=== PATIENT | male | born 1940 | race Caucasian/White ===

== ENCOUNTER 2017-05-05 20:25 | Inpatient (IN) | payer MEDICARE, OTHER ==
[2017-05-05 21:00] LABS: #Eosinphils 0.1 thou/uL (0.0-0.7); #Lymphocytes 2.2 thou/uL (1.20-3.40); #Monocytes 0.6 thou/uL (0.11-0.59); %Basophils 0.5 % (0.0-1.0); %Eosinophils 1.7 % (0.0-10.0); %Lymphocytes 37.6 % (21.0-51.0); %Monocytes 9.4 % (0.0-10.0); %Neutrophils 50.9 % (42.0-75.0); Mean Corpuscular HGB CONC 32.8 g/dL (32.0-36.0); Mean Corpuscular Hemoglobin 30.9 pg (27.0-31.0); Mean Corpuscular Volume 94.2 fl (80.0-94.0); Mean Platelet Volume 7.8 fL (7.4-10.4); Platelet Count 200 thou/uL (130-400); RBC Distribution Width 12.1 % (11.5-14.5); Red Blood Cell (RBC) Count 4.54 mill/uL (4.70-6.10); White Blood Cell (WBC) Count 5.9 thou/uL (4.8-10.8)
[2017-05-05 21:04] LABS: PTT 29.1 SEC (22.9-36.1); Prothrombin Time 13.7 SEC (12.0-14.7)
--- NOTE | 2017-05-05 21:05 | CT ---
CT OF BRAIN PERFORMED WITHOUT CONTRAST ENHANCEMENT: History: Right side facial droop. History of fall. Slurred speech. History of previous stroke. Comparison: None. FINDINGS: Some generalized ventricular and sulcal prominence with encephalomalacia change in the right frontal lobe in an anterior perisylvian location. There is a fairly circumscribed oblong shaped 2.5 x 4.2 cm left frontal periventricular white matter bleed. There is no subdural hematoma or mass effect. IMPRESSION: Acute intraparenchymal hemorrhage in the left frontal white matter could potentially be hypertensive in origin. It is not entirely typical for a fall. The possibility of an underlying mass is not totall y excluded and follow up is recommended. Findings telephoned to Dr. Nesbitt at 2037 hours. POS: [facility]
[2017-05-05 21:10] LABS: ALT (SGPT) 8 U/L (8-55); AST (SGOT) 14 U/L (5-34); Albumin 3.9 g/dL (3.4-4.8); Alkaline Phosphatase 53 U/L (40-150); Anion Gap 13 mmol/L (10-20); BUN (Urea Nitrogen) 20 mg/dL (8.4-25.7); Bilirubin, Total 0.4 mg/dL (0.2-1.2); Calc. Creatinine Clearance 0 mL/min (70-130); Calcium 9.2 mg/dL (7.8-10.44); Carbon Dioxide 24 mmol/L (23-31); Chloride 105 mmol/L (98-107); Estimated GFR-MDRD 89; Globulin 2.5 g/dL (2.4-3.5); Glucose 81 mg/dL (83-110); Potassium 4.2 mmol/L (3.5-5.1); Protein, Total 6.4 g/dL (5.8-8.1); Sodium 138 mmol/L (136-145)
[2017-05-05 21:15] LABS: CKMB 1.5 ng/mL (0-6.6); Troponin I 0.021 ng/mL (< 0.028)
--- NOTE | 2017-05-05 21:29 | CT ---
CT OF CERVICAL SPINE PERFORMED WITHOUT CONTRAST ENHANCEMENT: History: Fall with neck pain. FINDINGS: Vertebral bodies are normal in height. There is disc narrowing at C5-6. There are degenerative facet changes present. At the C5-6 level there is some borderline right foraminal narrowing and borderline canal narrowing. Along the right side of the base of the dens seen on coronal image 17 is an area of lucency. Margins are corticated. Thisis not felt to be related to any type of acute injury. Bones do appear deminerali zed. IMPRESSION: 1. Arthritic change in the spine. Subtle area of lucency along the right side of the base of the dens is not felt to be related to acute injury, but clinical correlation is recommended. These findings w ere discussed with Dr. Nesbitt. POS: [facility]
[2017-05-05] MEDS ORDERED: Acetaminophen 650 MG Suppository PR PRN (21:41)
[2017-05-05] MEDS ORDERED: niCARdipine 20MG in NaCl 200 ML BAG IVPB PRN (21:41)
[2017-05-05] MEDS ORDERED: Ondansetron HCl/PF 4 MG/2 ML Vial IVP PRN (21:41)
[2017-05-05] MEDS ORDERED: niCARdipine HCl 25 MG in Sodium Chloride 0.9% 250 ML 240 ML IVPB SCH (22:15)
[2017-05-05 22:32] LABS: Bilirubin Negative (Negative); Blood, Urine Negative (Negative); Clarity CLEAR (Clear); Glucose, Urine (Dipstick) Negative (Negative); Leukocyte Negative (Negative); Nitrite Negative (Negative); Protein, Urine (Dipstick) Negative (Neg-Trace); pH, Urine 7.5 (5.0-9.0)
[2017-05-06] MEDS: Sodium Chloride 0.9% 1,000 ML IV SCH ×3 (00:15→21:40)
[2017-05-06] MEDS ORDERED: FLU VACC TS2017-18 (>65YR) 0.5 ML SYRINGE IM ONE (01:00)
[2017-05-06] MEDS: niCARdipine HCl 25 MG in Sodium Chloride 0.9% 250 ML 240 ML IVPB PRN ×2 (02:00→13:26)
[2017-05-06 04:44] LABS: #Eosinphils 0.1 thou/uL (0.0-0.7); #Lymphocytes 1.5 thou/uL (1.20-3.40); #Monocytes 0.5 thou/uL (0.11-0.59); #Neutrophils 5.8 thou/uL (1.40-6.50); %Basophils 0.3 % (0.0-1.0); %Eosinophils 0.9 % (0.0-10.0); %Lymphocytes 19.5 % (21.0-51.0); %Monocytes 6.3 % (0.0-10.0); Hemoglobin 13.7 g/dL (14.0-18.0); Mean Corpuscular HGB CONC 32.9 g/dL (32.0-36.0); Mean Corpuscular Hemoglobin 30.9 pg (27.0-31.0); Mean Platelet Volume 8.1 fL (7.4-10.4); Platelet Count 191 thou/uL (130-400); Red Blood Cell (RBC) Count 4.44 mill/uL (4.70-6.10); White Blood Cell (WBC) Count 7.9 thou/uL (4.8-10.8)
[2017-05-06 05:06] LABS: Anion Gap 10 mmol/L (10-20); BUN (Urea Nitrogen) 18 mg/dL (8.4-25.7); Calc. Creatinine Clearance 82 mL/min (70-130); Carbon Dioxide 28 mmol/L (23-31); Chloride 102 mmol/L (98-107); Estimated GFR-MDRD Greater than 90; Glucose 108 mg/dL (83-110); Potassium 3.7 mmol/L (3.5-5.1); Sodium 136 mmol/L (136-145)
--- NOTE | 2017-05-06 05:59 | HP ---
ATTENDING PHYSICIAN: Dr. Dell Vargas HISTORY OF PRESENT ILLNESS: The patient is a 77-year-old male with past medical history of CVA, hypertension, prior incarcerated hernia requiring surgical intervention which resulted in a generalized deconditioning. At baseline, the patient walks well, but has right upper extremity weakness and a soft but clear voice. The patient was brought to the ER tonight per EMS following an unwitnessed fall. reports that she heard a thud in the next room and found the patient lying on the floor. The patient was brought to the ED for further evaluation. CT head revealed a left intraparenchymal hemorrhage that is suspect for hypertensive in origin. There was no midline shift or mass effect. CT of the C-spine showed lucency of the dens, but this was not suspected to be traumatic in origin; however, patient is wearing a C-collar. I am seeing the patient at the bedside in the emergency department. He has a GCS of 15. The patient is alert and he answers some questions. His voice is soft and clear. He has a right facial droop. Pupils are equal and reactive to light. Left gaze deviation is appreciated. He has a weak right upper extremity which is slightly spastic but this is chronic per the family. He has good strength in all other extremities and is moving freely. His family denies any anticoagulants or aspirin use. PAST MEDICAL HISTORY: Hypertension, CVA, incarcerated hernia resulting in sepsis, RISHI, ARDS and generalized deconditioning with residual right upper extremity weakness and voice changes. PAST SURGICAL HISTORY: Hernia surgery. SOCIAL HISTORY: The patient is and lives at home with his . He does not smoke, drink or use any drugs. ALLERGIES: The patient is allergic to PENICILLIN. PHYSICAL EXAMINATION: VITAL SIGNS: Blood pressure is 175/101, pulse is 74, respiration rate is 12, temperature is 97.5. He is 97% on room air. CONSTITUTIONAL: He has a GCS of 15. His eyes are open. He is looking around. He answers some questions. He is moving his extremities except for weak in the right upper extremity. He has abrasion to the left frontal region. EYES: Pupils are equal and reactive to light. He has a left gaze preference. NECK: He is currently wearing a cervical collar. He appears nontender on my palpation. RESPIRATORY: The patient is breathing comfortably. No evidence of respiratory distress. CARDIOVASCULAR: Regular rate and rhythm. MUSCULOSKELETAL: He has skin tears to the right upper extremity. He is weak in the right upper extremity with some spasticity of this arm as well. He has 5 /5 strength in the left upper extremity. He is moving bilateral lower extremities, also with 4/5 strength bilateral. NEUROLOGIC: His speech is clear. He answers some questions. He is following commands. He has a right-sided facial droop. PLAN: The patient will be admitted to the ICU for q.1 neuro checks and close monitoring. The Hospitalist will also be consulted for assistance in medical management. The patient is not on any anticoagulants. He has normal PT, PT-INR , and platelet count at this time. The head of the bed will be elevated at 30 degrees. We will plan to repeat head CT in the morning. I have also consulted PT, OT, and speech evaluations. Please reach out to Neurosurgery Service for additional questions or concerns. YU
[2017-05-06] MEDS ORDERED: Eucerin (Mineral Oil/Petrolatum,White) 30 gm Jar TOP PRN (07:29)
[2017-05-06] MEDS ORDERED: Chloraseptic Spray 180 ml Bottle PO PRN (07:29)
[2017-05-06] MEDS ORDERED: Fleet Enema 133 ML BOT PR PRN (07:29)
[2017-05-06] MEDS ORDERED: Bisacodyl 10 MG SUPP PR PRN (07:29)
[2017-05-06] MEDS ORDERED: Sodium Chloride 0.65% Nasal 44 ML BOT EA NARE PRN (07:29)
[2017-05-06] MEDS ORDERED: Artificial Tears 18 DROP/0.9 ML EA EYE PRN (07:29)
--- NOTE | 2017-05-06 07:41 | CT ---
PRELIMINARY REPORT/[facility]/EMERGENCY AFTER HOURS PROCEDURE: EXAM: CT Head Without Intravenous Contrast CLINICAL HISTORY: 77 years old, male; Condition or disease; Other: Intracerebral hemorrhagic stroke; Patient HX: F/u in tracerebral hemorrhagic stroke TECHNIQUE: Axial computed tomography images of the head/brain without intravenous contrast. COMPARISON: CT Brain WO Con 2017-05-05 20:31 FINDINGS: Grossly stable left basal ganglia/beth radiata hemorrhage with surrounding edema. Faint intraventri cular hemorrhage cannot be completely excluded. No hydrocephalus or acute territorial infarction. Chr onic right MCA infarction is stable. The calvarium is intact. The paranasal sinuses are grossly clear IMPRESSION: Grossly stable left-sided basal ganglia/beth radiata hemorrhage with suspected faint intraventricul ar extension Thank you for allowing us to participate in the care of your patient. Dictated and Authenticated by: Mychal Rodriguez MD 05/06/2017 4:24 AM Central Time ([place] & [place]) FINAL REPORT CT BRAIN WITHOUT CONTRAST: I agree with the preliminary report given by Dr. Mychal Rodriguez of [facility]. POS: [facility]
[2017-05-06] MEDS: Famotidine/PF 20 mg/2ml Vial SLOW IVP SCH ×2 (09:44→21:39)
--- NOTE | 2017-05-06 10:10 | CON ---
DATE OF CONSULTATION: 05/06/2017 HISTORY: This is a 77-year-old gentleman in the CCU. REASON FOR CONSULTATION: ICU care. History is obtained extensively from the , the patient is unable to give any history. He has a n ew left intracerebral hemorrhage. Apparently, his states he was coming out of the bathroom and fell on his equipment. He has right-sided facial drooping, he had previous CVA many years ago, saw a local neurologist, plac ed on medication, but apparently stopped taking it because of side effects. He is unable to verbalize anything. An emergency CT showed as noted which I have reviewed personally , I looked at the x-rays, left-sided intracerebral hemorrhage. PAST MEDICAL HISTORY: Unremarkable for any major medical problems, history of diabetes, hypertension . PAST SURGICAL HISTORY: Incarcerated hernia with resection at [facility] about a year ago. This was complicated by renal failure, sepsis, respiratory failure, to which he responded and did well. Otherwise hernia surgery 2017 and a hernia surgery some 20 years ago. ALLERGIES: Apparently PENICILLIN. CURRENT MEDICATIONS: None. 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 Please note I reviewed his past medical records, there are none in this hospital. I talked to his fa mar at length. PAST HISTORY: Otherwise unremarkable. REVIEW OF SYSTEMS: Otherwise, 10-point negative. PHYSICAL EXAMINATION: GENERAL: He opens his eyes, lethargic, but arousable. VITAL SIGNS: Saturations 100%, respirations 24, temperature 97, blood pressure 126/70. HEENT: Pupils are equal. CHEST: No wheezing or crackles. CARDIAC: Normal S1, S2. No gallops. ABDOMEN: Soft, no masses. LABORATORY DATA: White count 10,000, H&H 9 and 34, platelet count 191. Electrolytes are normal. X-RAY FINDINGS: CT brain, I reviewed the image and the report which shows a stable left-sided basila r hemorrhage, some intraventricular extension. CT spine reviewed, unremarkable. His lab shows white count 7000, H&H and 13 and 41, platelet count is normal. Chemistry unremarkable. IMPRESSION: 1. Left-sided intracerebral hemorrhage. Neurology and Neurosurgery have seen the patient and starte d him on nicardipine to control blood pressure. 2. Encephalopathy secondary to #1. PLAN: Pulmonary Critical Care will follow while in the ICU. At this stage, nothing additional to of olga. Await input from Neurosurgery. Please note this is a consultation note, 70 minutes of which 50% of the time was spent in direct tiffanie ent care at the bedside.
--- NOTE | 2017-05-06 15:49 | CON ---
PRIMARY CARE PHYSICIAN: Toby Fierro M.D. PRIMARY ATTENDING: Dell Vargas M.D. REASON FOR ADMISSION: Intracranial hemorrhage. REASON FOR CONSULT: Medical comanagement. HISTORY OF PRESENT ILLNESS: A 77-year-old male who was last seen normal around 8:00 p.m. yesterday. Stroke alert was initiated from home. Patient was having acute onset of right-sided facial droop an d right-sided weakness. Paramedics were called. At that time, his blood pressure was 170/102. The patient was not able to provide any history, but patient's was present. Patient also has previo us history of stroke. The patient's reported that he was doing very well. Yesterday he had his breakfast, lunch, and he went outside to walk and after returning, he also took a nap, but subsequen tly around 8:00 p.m., he was having weakness on the right side and he was not able to talk well and h e was having facial droop. The patient's was concerned about and she called paramedics. In the emergency room, patient had CT brain which showed left frontal intracranial hemorrhage. Dr. Venu Sharpe was notified. The patient was admitted under neurosurgeon. Subsequently we were co nsulted for medical comanagement. This patient did not have any headache, chest pain, palpitations, and shortness of breath. The patie nt's reports that his blood pressure normally remains normal without any medication, but when he was brought to ER, at that time he was hypertensive. Patient does not have any flu-like illness. He does not have any constipation, diarrhea, or UTI symp toms. REVIEW OF SYSTEMS: All review of systems tried to review with the patient, but unable to review at t his point because of altered mental status and patient unable to talk clearly. PAST MEDICAL HISTORY: History of hypertension, but not on specific medication, history of CVA x2, hi story of incarcerated hernia resulted in sepsis, acute kidney failure, ARDS and generalized weakness with residual right upper extremity weakness and voice changes. PAST SURGICAL HISTORY: Hernia repair and colectomy. PAST PSYCHIATRIC HISTORY: Reviewed and negative. SOCIAL HISTORY: Patient is . He lives at home with his . No history of tobacco, alcohol or illicit drug abuse. ALLERGIES: PENICILLIN. CURRENT HOME MEDICATIONS: Patient is not taking any medication at this point at home. EMERGENCY ROOM COURSE: Reviewed. FAMILY HISTORY: No strong family history of premature coronary artery disease, stroke or cancer. PHYSICAL EXAMINATION: VITAL SIGNS: On arrival, blood pressure 161/90, pulse 60, respiratory rate 12, temperature 97.5, sat uration 99% on room air, and weight 66.2 kilograms. GENERAL: Patient is currently alert, awake, hypertensive on Cardene drip. Follow simple commands. HEAD: Mild abrasion to left frontal lobe and normocephalic. EYES: The patient does have left-sided gaze. Pupils round, reactive to light. NECK: Supple, no JVD, no thyromegaly, no carotid bruit, no meningeal signs of irritation. LUNGS: Clear to auscultation without any rhonchi or rales. CARDIAC: S1, S2 regular without any murmur. ABDOMEN: Soft, bowel sounds present, nontender, nondistended. No organomegaly, no mass, no suprapub ic tenderness. BACK: Examination unremarkable, no CVA tenderness. EXTREMITIES: Upper extremity, patient has a skin tear to right upper extremity. Patient has cough s pasticity of right upper extremity. Lower extremity, no edema. Good peripheral pulsation. NEUROLOGIC: Patient does not follow any simple commands, though he is arousable, awake. He does hav e right-sided weakness as well as facial droop. SKIN: No skin rash. IMAGING DATA AND SIGNIFICANT LABORATORY DATA: 1. CT brain showing left intraventricular bleeding. 2. CT cervical spine showed degenerative spine disease. 3. Repeat CT brain this morning showed stable left-sided basal ganglia beth radiata hemorrhage wit h intraventricular extension. groundwater monitoring technician showing normal sinus rhythm. 4. CBC: WBC 7.9, hemoglobin 13.7, platelets 191, INR 1.0. 5. BMP: Sodium 138, potassium 4.2, chloride 105, carbon dioxide 24, anion gap 13, BUN 20, creatinin e 0.84, glucose 81, and calcium 9.2. 6. LFT: AST 14, ALT 8, alkaline phosphatase 53, albumin 3.9, CK 56, CK-MB 1.5, troponin 0.021. Uri nalysis normal. ASSESSMENT AND PLAN/IMPRESSION: 1. Acute intraparenchymal cerebral hemorrhage in left frontal lobe suspecting from hypertension. Po ssibility of amyloid angiopathy needs to be excluded. Repeat CT brain is also stable without any wor sening. This patient may not need any surgical intervention. We will keep in CCU. We will continue with Cardene drip and try to keep blood pressure well controlled. Entire stroke team will see this patient. Once patient is cleared for p.o. intake, then we will resume oral antihypertensive medicati on. Once Cardizem drip is off, then patient can be transferred to the stroke floor and then PT, OT a nd speech therapy will be continued and eventually this patient may need rehab placement. 2. History of a cerebrovascular accident, but currently because of acute intracerebral bleed, chan avitia is not a candidate for any kind of antiplatelet therapy. We will check lipid profile, homocysteine tomorrow. As a part of stroke workup, we will do echocardiography. 3. Hypertension. Currently, patient is on Cardene drip, but once patient is cleared for p.o. intake , then we will start amlodipine and titrate blood pressure medication. 4. Oropharyngeal dysphagia. Speech therapy consulted and diet, we will defer to speech therapy. 5. Physical deconditioning. Patient will need PT, OT, and eventual rehab placement. 6. Deep venous thrombosis prophylaxis. Sequential compression device boots only. No Lovenox becaus e of intracranial bleeding. 7. Gastrointestinal prophylaxis. Patient is on Pepcid 20 mg IV b.i.d. 8. Code status. I spoke with the patient's and she wanted to try at least one time in case of cardiopulmonary arrest, but she does not want him to be on machine forever. In this way, we are keep ing him as a FULL CODE. The patient's is surrogate decision maker. Disposition and plan based on clinical course. We are expecting patient's stay in hospital more than 2 midnights. Plan of care discussed with the patient's at bedside in ICU. Thank you for the consult. We will follow up with you while in hospital.
[2017-05-07] MEDS: Labetalol HCl 100 MG/20 ML VIAL SLOW IVP PRN ×2 (03:04→16:13)
[2017-05-07 05:13] LABS: #Lymphocytes 1.3 thou/uL (1.20-3.40); #Monocytes 0.5 thou/uL (0.11-0.59); #Neutrophils 5.3 thou/uL (1.40-6.50); %Basophils 0.4 % (0.0-1.0); %Eosinophils 0.6 % (0.0-10.0); %Lymphocytes 18.6 % (21.0-51.0); %Monocytes 7.1 % (0.0-10.0); %Neutrophils 73.3 % (42.0-75.0); Hemoglobin 14.2 g/dL (14.0-18.0); Mean Corpuscular HGB CONC 33.3 g/dL (32.0-36.0); Mean Corpuscular Hemoglobin 30.9 pg (27.0-31.0); Mean Corpuscular Volume 92.8 fl (80.0-94.0); Mean Platelet Volume 7.7 fL (7.4-10.4); Platelet Count 207 thou/uL (130-400); Red Blood Cell (RBC) Count 4.61 mill/uL (4.70-6.10); White Blood Cell (WBC) Count 7.2 thou/uL (4.8-10.8)
[2017-05-07 05:22] LABS: Anion Gap 10 mmol/L (10-20); BUN (Urea Nitrogen) 11 mg/dL (8.4-25.7); Calc. Creatinine Clearance 80 mL/min (70-130); Calcium 8.9 mg/dL (7.8-10.44); Carbon Dioxide 28 mmol/L (23-31); Cardiac Risk 2.9 (Less than 4.5); Chloride 103 mmol/L (98-107); Cholesterol 197 mg/dl (< 200 Desired); Estimated GFR-MDRD Greater than 90; Glucose 95 mg/dL (83-110); HDL Cholesterol 67 mg/dL (>60 Neg Risk); LDL Cholesterol, Calculated 117 mg/dL; Potassium 3.9 mmol/L (3.5-5.1); Sodium 137 mmol/L (136-145); Triglycerides 67 mg/dL (Less than 150)
[2017-05-07] MEDS ORDERED: hydrALAZINE 20 MG/ML VIAL SLOW IVP PRN (07:11)
[2017-05-07] MEDS ORDERED: cloNIDine 0.1mg/24 Hour PATCH TD SCH (09:00)
--- NOTE | 2017-05-07 09:25 | PRG ---
DATE OF SERVICE: 05/07/2017 Mr. Ha this morning he is a little bit more responsive. He has right-sided weakness, facial palsy. PHYSICAL EXAMINATION: VITAL SIGNS: Blood pressure is elevated at 160/89, though right now is 130/80 on Cardene at 2.5. He is able to verbalize some. He is afebrile, sats are 90%, respirations 18. I's and O's have been ot herwise good 2206 in, 2124 out. CHEST: Chest revealed decreased breath sounds, no wheezing. CARDIAC: Normal S1-S2. ABDOMEN: Soft. No masses. IMPRESSION: 1. Intracerebral hemorrhage with a right-sided weakness. 2. Hypertension. PLAN: I agree with hydralazine p.r.n. PT, Speech, nutrition and supportive care. I will follow.
[2017-05-07] MEDS: Famotidine/PF 20 mg/2ml Vial SLOW IVP SCH ×2 (09:35→21:01)
[2017-05-07] MEDS: hydrALAZINE 20 MG/ML VIAL SLOW IVP SCH ×2 (10:00→13:08)
--- NOTE | 2017-05-07 11:07 | PDOC.PN ---
- Subjective Encounter Start Date: 05/07/17 Encounter Start Time: 10:00 -: old records requested/rev pt failed swallow evaluation, no fever, bedside Patient seen and examined. No new complaints. No overnight events - Objective Resuscitation Status: Resuscitation Status FULL:Full Resuscitation MAR Reviewed: Yes Vital Signs & Weight: Vital Signs (12 hours) Temp Pulse BP 05/07/17 10:00 71 147/83 H 05/07/17 08:00 98.1 F 05/07/17 03:04 75 152/104 H 05/07/17 03:00 98.2 F Weight Admit Weight 146 lb Weight 146 lb 9.718 oz Most Recent Monitor Data Heart Rate from ECG 78 NIBP 124/53 NIBP BP-Mean 62 Respiration from ECG 23 SpO2 99 I&O: 05/06/17 05/07/17 05/08/17 06:59 06:59 06:59 Intake Total 446.7 2207 Output Total 995 2125 375 Balance -548.3 82 -375 Result Diagrams: 05/07/17 04:35 05/07/17 04:34 EKG Reviewed by me: Yes (nsr) Phys Exam - Physical Examination Constitutional: NAD HEENT: PERRLA, moist MMs, sclera anicteric Neck: no JVD, supple Respiratory: no wheezing, no rales, no rhonchi Cardiovascular: RRR, no significant murmur, no rub Gastrointestinal: soft, non-tender, no distention, positive bowel sounds Musculoskeletal: no edema, pulses present Neurological: non-focal, normal sensation right side weakness Psychiatric: normal affect Skin: no rash, normal turgor Dx/Plan (1) Hypertension Code(s): I10 - ESSENTIAL (PRIMARY) HYPERTENSION Status: Acute (2) ICH (intracerebral hemorrhage) Code(s): I61.9 - NONTRAUMATIC INTRACEREBRAL HEMORRHAGE, UNSPECIFIED Status: Acute (3) Oropharyngeal dysphagia Code(s): R13.12 - DYSPHAGIA, OROPHARYNGEAL PHASE Status: Acute (4) H/O: CVA (cerebrovascular accident) Code(s): Z86.73 - PRSNL HX OF TIA (TIA), AND CEREB INFRC W/O RESID DEFICITS Status: Chronic (5) Physical deconditioning Code(s): R53.81 - OTHER MALAISE Status: Chronic (6) Dyslipidemia Code(s): E78.5 - HYPERLIPIDEMIA, UNSPECIFIED Status: Chronic - Plan cont current plan of care, plan discussed w/ family, PT/OT, social work associate * if pt fails today for any oral intake, will place dubhuff tube and then start tube feeding * medication reviewed as below * symptomatic treatment * will DC cardene drip * place catapress patch * possible transfer to stroke floor * stroke team * will need placement on discharge. Review of Systems - Review of Systems Other: unable to review as pt is aphasic - Medications/Allergies Allergies/Adverse Reactions: Allergies Allergy/AdvReac Type Severity Reaction Status Date / Time Penicillins Allergy Verified 05/05/17 21:59 Medications: Current Medications Acetaminophen (Tylenol) 650 mg TX Q4H PRN PRN Reason: Headache/Fever or Pain Artificial Tears (Tears Naturale) 0 drop EA EYE PRN PRN PRN Reason: Dry Eyes Bisacodyl (Dulcolax) 10 mg TX DAILYPRN PRN PRN Reason: Constipation Clonidine (Vzhveneh-Tkg-1 Patch) 0.1 mg TD Q7DAYS [facility] Famotidine (Pepcid) 20 mg SLOW IVP Q12HR [facility] Last Admin: 05/07/17 09:35 Dose: 20 mg Hydralazine HCl (Apresoline) 10 mg SLOW IVP Q3HR [facility] Last Admin: 05/07/17 10:00 Dose: 10 mg Sodium Chloride (Normal Saline 0.9%) 1,000 mls @ 80 mls/hr IV .[id number] [facility] Last Admin: 05/06/17 21:40 Dose: 1,000 mls Labetalol HCl (Normodyne) 10 mg SLOW IVP Q2H PRN PRN Reason: SBP > 150 or DBP > 90 Last Admin: 05/07/17 03:04 Dose: 10 mg Mineral Oil/White Petrolatum (Eucerin Cream) 0 gm TOP BIDPRN PRN PRN Reason: Dry Skin Morphine Sulfate (Morphine Sulfate) 2 mg SLOW IVP Q4H PRN PRN Reason: Pain Ondansetron HCl (Zofran) 4 mg IVP BIDPRN PRN PRN Reason: Nausea/Vomiting Phenol (Chloraseptic [place] 180 Ml Bot) 0 ml PO PRN PRN PRN Reason: Sore Throat Sodium Biphosphate/Sodium Phosphate (Fleet Enema) 133 ml [place] PRN PRN PRN Reason: Constipation Sodium Chloride (Flush - Normal Saline) 10 ml IVF PRN PRN PRN Reason: Saline Flush Last Admin: 05/07/17 10:02 Dose: 10 ml Sodium Chloride ([place] Nasal [place] 0.65%) 0 ml EA NARE QIDPRN PRN PRN Reason: Nasal Congestion
[2017-05-07] MEDS: Sodium Chloride 0.9% 1,000 ML IV SCH (13:51)
--- NOTE | 2017-05-07 13:59 | RAD ---
SUPINE KUB: Date: 05-07-17 Comparison: None. History: Dobbhoff placement. FINDINGS: Supine imaging is provided, limiting assessment for free intraperitoneal air, pneumothorax, or pleura l fluid. There is a Dobbhoff feeding tube curling in the left upper quadrant, the distal tip likely i n the region of the gastric body or fundus. IMPRESSION: Dobbhoff tube extends into left upper quadrant. POS: [facility]
[2017-05-07] MEDS: hydrALAZINE 20 MG/ML VIAL SLOW IVP PRN (21:00)
[2017-05-08] MEDS: Sodium Chloride 0.9% 1,000 ML IV SCH (00:08)
[2017-05-08] MEDS ORDERED: Acetaminophen 325 MG TAB PER TUBE PRN (07:44)
[2017-05-08] MEDS ORDERED: Diabetic Tussin 200 MG/10 ML UDCUP PER TUBE PRN (07:44)
[2017-05-08] MEDS ORDERED: Mag-Al 1200 mg/1200 mg/30 ML UDCUP PER TUBE PRN (07:44)
[2017-05-08] MEDS: Amlodipine 5 MG TAB PER TUBE SCH (08:00)
[2017-05-08] MEDS: Famotidine/PF 20 mg/2ml Vial SLOW IVP SCH ×2 (09:57→20:40)
--- NOTE | 2017-05-08 10:19 | PRG ---
DATE OF SERVICE: 05/08/2017 He is better. This morning he is awake, responsive, moves his left side. PHYSICAL EXAMINATION: VITAL SIGNS: Sats are 92% on room air, respiration 20, temperature 99, blood pressure 140/80. CHEST: Chest revealed decreased breath sounds, no wheezing. CARDIAC: Normal S1-S2. No gallops. ABDOMEN: Soft, no masses. IMPRESSION: 1. Status post intracerebral hemorrhage. 2. Dysphagia. PLAN: He is scheduled to have a PEG placed. Continue comfort care as per the family's wishes. Palliative care was consulted last night.
[2017-05-08] MEDS: Labetalol HCl 100 MG/20 ML VIAL SLOW IVP PRN ×2 (10:36→22:05)
--- NOTE | 2017-05-08 10:54 | PDOC.PN ---
- Subjective Encounter Start Date: 05/08/17 Encounter Start Time: 08:40 Patient seen and examined. No new complaints. No overnight events pt pulled out dubhuff tube pt is sleepy but arousable - Objective Resuscitation Status: Resuscitation Status FULL:Full Resuscitation MAR Reviewed: Yes Vital Signs & Weight: Vital Signs (12 hours) Temp Pulse Resp BP BP Pulse Ox 05/08/17 10:36 81 175/94 H 05/08/17 08:00 81 146/80 H 05/08/17 07:27 99.0 F 81 20 146/80 H 92 L 05/08/17 04:07 98.5 F 78 18 123/64 96 05/08/17 00:23 99.2 F 71 20 127/62 98 Weight Admit Weight 146 lb Weight 147 lb 12.8 oz Most Recent Monitor Data Heart Rate from ECG 68 NIBP 144/85 NIBP BP-Mean 92 Respiration from ECG 18 SpO2 100 I&O: 05/07/17 05/08/17 05/09/17 06:59 06:59 06:59 Intake Total 2207 2579 Output Total 2125 1345 Balance 82 1234 Result Diagrams: 05/07/17 04:35 05/07/17 04:34 EKG Reviewed by me: Yes Phys Exam - Physical Examination Constitutional: NAD HEENT: PERRLA, moist MMs, sclera anicteric Neck: no JVD, supple Respiratory: no wheezing, no rales, no rhonchi Cardiovascular: RRR, no significant murmur, no rub Gastrointestinal: soft, non-tender, no distention, positive bowel sounds Musculoskeletal: no edema, pulses present unable to assess as he is sleepy Psychiatric: normal affect Skin: no rash, normal turgor Dx/Plan (1) Hypertension Code(s): I10 - ESSENTIAL (PRIMARY) HYPERTENSION Status: Acute (2) ICH (intracerebral hemorrhage) Code(s): I61.9 - NONTRAUMATIC INTRACEREBRAL HEMORRHAGE, UNSPECIFIED Status: Acute (3) Oropharyngeal dysphagia Code(s): R13.12 - DYSPHAGIA, OROPHARYNGEAL PHASE Status: Acute (4) H/O: CVA (cerebrovascular accident) Code(s): Z86.73 - PRSNL HX OF TIA (TIA), AND CEREB INFRC W/O RESID DEFICITS Status: Chronic (5) Physical deconditioning Code(s): R53.81 - OTHER MALAISE Status: Chronic (6) Dyslipidemia Code(s): E78.5 - HYPERLIPIDEMIA, UNSPECIFIED Status: Chronic - Plan cont current plan of care, plan discussed w/ family, PT/OT, child welfare social worker, speech therapy, DVT proph w/SCDs * today I had discussion with about PEG and she finally agreed with PEG placement * will consult GI * once PEG placed, then will start tube feeding and if tolerated well, he will be stable for discharge to rehab when accepted * medication reviewed as below * symptomatic treatment. Review of Systems - Review of Systems Other: unable to review due to his current cognitive status - Medications/Allergies Allergies/Adverse Reactions: Allergies Allergy/AdvReac Type Severity Reaction Status Date / Time Penicillins Allergy Verified 05/05/17 21:59 Medications: Current Medications Acetaminophen (Tylenol) 650 mg FL Q4H PRN PRN Reason: Headache/Fever or Pain Acetaminophen (Tylenol) 650 mg PER TUBE Q4H PRN PRN Reason: Headache/Fever or Mild Pain Al Hydroxide/Mg Hydroxide (Maalox) 15 ml PER TUBE Q4H PRN PRN Reason: Heartburn or Indigestion Amlodipine Besylate (Norvasc) 5 mg PER TUBE DAILY [facility] Last Admin: 05/08/17 08:00 Dose: Not Given Artificial Tears (Tears Naturale) 0 drop EA EYE PRN PRN PRN Reason: Dry Eyes Atorvastatin Calcium (Lipitor) 10 mg PER TUBE [facility] Bisacodyl (Dulcolax) 10 mg FL DAILYPRN PRN PRN Reason: Constipation Clonidine (Xgnmovbd-Lgp-5 Patch) 0.1 mg TD Q7DAYS [facility] Last Admin: 05/07/17 12:59 Dose: 0.1 mg Famotidine (Pepcid) 20 mg SLOW IVP Q12HR [facility] Last Admin: 05/08/17 09:57 Dose: 20 mg Guaifenesin (Robitussin Sf) 200 mg PER TUBE Q4H PRN PRN Reason: Cough Hydralazine HCl (Apresoline) 10 mg SLOW IVP Q3H PRN PRN Reason: DIRECTED Last Admin: 05/07/17 21:00 Dose: 10 mg Labetalol HCl (Normodyne) 10 mg SLOW IVP Q2H PRN PRN Reason: SBP > 150 or DBP > 90 Last Admin: 05/08/17 10:36 Dose: 10 mg Mineral Oil/White Petrolatum (Eucerin Cream) 0 gm TOP BIDPRN PRN PRN Reason: Dry Skin Morphine Sulfate (Morphine Sulfate) 2 mg SLOW IVP Q4H PRN PRN Reason: Pain Ondansetron HCl (Zofran) 4 mg IVP BIDPRN PRN PRN Reason: Nausea/Vomiting Phenol (Chloraseptic [place] 180 Ml Bot) 0 ml PO PRN PRN PRN Reason: Sore Throat Sodium Biphosphate/Sodium Phosphate (Fleet Enema) 133 ml [place] PRN PRN PRN Reason: Constipation Sodium Chloride (Flush - Normal Saline) 10 ml IVF PRN PRN PRN Reason: Saline Flush Last Admin: 05/08/17 10:40 Dose: 10 ml Sodium Chloride ([place] Nasal [place] 0.65%) 0 ml EA NARE QIDPRN PRN PRN Reason: Nasal Congestion
--- NOTE | 2017-05-08 14:03 | CT ---
CT BRAIN WITHOUT CONTRAST: Comparison: 05-06-17 History: Change in mental status. Intracranial hemorrhage. Technique: Multiple contiguous axial images were obtained in a CT of the brain without contrast. FINDINGS: There is stable left basal ganglia hemorrhage with slight shift of the midline to the right. No intra ventricular hemorrhage is seen. There is stable encephalomalacia in the right frontal lobe. There is no evidence of hydrocephalus or extraaxial fluid collection. No change has occurred compared to the p rior exam. The calvarium and overlying soft tissues are unremarkable. The visualized paranasal sinuses and masto id air cells are well aerated. IMPRESSION: Stable left basal ganglia hemorrhage. POS: [facility]
--- NOTE | 2017-05-08 17:16 | CON ---
DATE OF CONSULTATION: 05/08/2017 GASTROENTEROLOGY CONSULTATION CHIEF COMPLAINT: Trouble swallowing. HISTORY OF PRESENT ILLNESS: Mr. Ha is a 77-year-old man, who was admitted with a hemorrhagic strok e on 05/05/2017. He has had dysphagia and dysphagia associated with this. The patient has a history of hypertension and prior stroke. The patient was in his normal state of health on Friday and then had the stroke Friday night. No known diarrhea, constipation, abdominal pain, or blood in the stool. No nausea or vomiting. He had a Dobbhoff or NG tube in yesterday, which he pulled out this morning . He failed a swallow study. GI is consulted for a feeding tube placement. PAST MEDICAL HISTORY: Hypertension and stroke. He had a strangulated internal hernia with sepsis an d complicated hospitalization with acute renal failure and ARDS. This occurred around a year and a h srinivasan ago and he had surgery by Dr. Gibson and has recovered well since then. PAST SURGICAL HISTORY: Internal hernia repair and bowel resection. FAMILY HISTORY: Negative for GI malignancies. SOCIAL HISTORY: No alcohol, tobacco or drugs. ALLERGIES: PENICILLIN. MEDICATIONS: Currently include amlodipine, atorvastatin, and famotidine. REVIEW OF SYSTEMS: Not obtainable as the patient is not verbally communicative due to a stroke. PHYSICAL EXAMINATION: VITAL SIGNS: Temperature 97.6, pulse 63, blood pressure 169/87, oxygen saturation 93% on room air. GENERAL: He is in no acute distress. He is awake. HEENT: His eyes have no scleral icterus. Oropharynx has dry mucous membranes, but it is otherwise c lear. NECK: No cervical or supraclavicular lymphadenopathy. LUNGS: Clear to auscultation bilaterally. HEART: Regular rate and rhythm. ABDOMEN: Soft, nontender, nondistended. Bowel sounds are present. He has a midline incision scar a few centimeters above and below the umbilicus. EXTREMITIES: No lower extremity edema. LABORATORY DATA: White blood cell count 7.2, hemoglobin 14.2, platelets 207. INR is 1.0. Creatinin e is 0.75. IMPRESSION: 1. Hemorrhagic stroke with dysphagia. 2. Hypertension. 3. History of internal strangulated hernia, status post bowel resection. 4. PENICILLIN allergy. RECOMMENDATIONS: 1. We will plan EGD with PEG. 2. Antibiotics per [facility]IP protocol for PENICILLIN allergy prior to the procedure. 3. Obtain an operative report of bowel resection from a year and a half ago.
[2017-05-08] MEDS ORDERED: Dextrose 5 % And 0.9 % NaCl 1,000 ML IV SCH (17:30)
[2017-05-08] MEDS: Dextrose 5 %-0.45 % NaCl 1,000 ML IV SCH (19:32)
[2017-05-08] MEDS: Atorvastatin Calcium 10 MG TAB PER TUBE SCH (21:37)
[2017-05-08] MEDS: hydrALAZINE 20 MG/ML VIAL SLOW IVP PRN (23:46)
[2017-05-09] MEDS: Amlodipine 5 MG TAB PER TUBE SCH (07:10)
[2017-05-09] MEDS: hydrALAZINE 20 MG/ML VIAL SLOW IVP PRN ×2 (08:19→19:02)
[2017-05-09] MEDS ORDERED: Clindamycin/D5W 900 mg/50 ml Premix Bag ONE (09:08)
[2017-05-09] MEDS ORDERED: Levofloxacin 500 mg/D5W 100 ml Premix Bag ONE (09:08)
--- NOTE | 2017-05-09 11:14 | PDOC.PN ---
- Subjective Encounter Start Date: 05/09/17 Encounter Start Time: 09:20 Patient seen and examined. No new complaints. No overnight events s/p PEG placement today - Objective Resuscitation Status: Resuscitation Status FULL:Full Resuscitation MAR Reviewed: Yes Vital Signs & Weight: Vital Signs (12 hours) Temp Pulse Resp BP BP Pulse Ox 05/09/17 08:19 60 05/09/17 07:38 98.4 F 60 20 169/86 H 96 05/09/17 07:10 60 05/09/17 04:55 98.1 F 60 20 152/78 H 98 05/09/17 00:27 123/68 05/08/17 23:46 66 160/78 H Weight Admit Weight 146 lb Weight 161 lb Most Recent Monitor Data Heart Rate from ECG 68 NIBP 144/85 NIBP BP-Mean 92 Respiration from ECG 18 SpO2 100 I&O: 05/08/17 05/09/17 05/10/17 06:59 06:59 06:59 Intake Total 2579 1026 Output Total 1345 750 Balance 1234 276 Result Diagrams: 05/07/17 04:35 05/07/17 04:34 EKG Reviewed by me: Yes (nsr) Phys Exam - Physical Examination Constitutional: NAD HEENT: PERRLA, moist MMs, sclera anicteric Neck: no JVD, supple Respiratory: no wheezing, no rales, no rhonchi Cardiovascular: RRR, no significant murmur, no rub Gastrointestinal: soft, non-tender, no distention, positive bowel sounds PEG+ Musculoskeletal: no edema, pulses present right side weakness Psychiatric: normal affect Skin: no rash, normal turgor Dx/Plan (1) ICH (intracerebral hemorrhage) Code(s): I61.9 - NONTRAUMATIC INTRACEREBRAL HEMORRHAGE, UNSPECIFIED Status: Acute Qualifiers: Intracerebral hemorrhage etiology: nontraumatic Cerebral hemorrhage location: cerebral hemisphere, subcortical portion Laterality: left Qualified Code(s): I61.0 - Nontraumatic intracerebral hemorrhage in hemisphere, subcortical (2) Hypertension Code(s): I10 - ESSENTIAL (PRIMARY) HYPERTENSION Status: Chronic (3) Oropharyngeal dysphagia Code(s): R13.12 - DYSPHAGIA, OROPHARYNGEAL PHASE Status: Acute Comment: s/p PEG placement (4) H/O: CVA (cerebrovascular accident) Code(s): Z86.73 - PRSNL HX OF TIA (TIA), AND CEREB INFRC W/O RESID DEFICITS Status: Chronic (5) Physical deconditioning Code(s): R53.81 - OTHER MALAISE Status: Chronic (6) Dyslipidemia Code(s): E78.5 - HYPERLIPIDEMIA, UNSPECIFIED Status: Chronic - Plan cont current plan of care, PT/OT, nursing home social worker, speech therapy * today later on will start tube feeding and advance as tolerated * on discharge he will go to rehab * medication reviewed as below * symptomatic treatment. * today will start oral meds for BP control Review of Systems - Review of Systems Other: unable to review due to his cognitive status - Medications/Allergies Allergies/Adverse Reactions: Allergies Allergy/AdvReac Type Severity Reaction Status Date / Time Penicillins Allergy Verified 05/05/17 21:59 Medications: Current Medications Acetaminophen (Tylenol) 650 mg MS Q4H PRN PRN Reason: Headache/Fever or Pain Acetaminophen (Tylenol) 650 mg PER TUBE Q4H PRN PRN Reason: Headache/Fever or Mild Pain Al Hydroxide/Mg Hydroxide (Maalox) 15 ml PER TUBE Q4H PRN PRN Reason: Heartburn or Indigestion Amlodipine Besylate (Norvasc) 5 mg PER TUBE DAILY [facility] Last Admin: 05/09/17 07:10 Dose: Not Given Artificial Tears (Tears Naturale) 0 drop EA EYE PRN PRN PRN Reason: Dry Eyes Atorvastatin Calcium (Lipitor) 10 mg PER TUBE HS [facility] Last Admin: 05/08/17 21:37 Dose: Not Given Bisacodyl (Dulcolax) 10 mg MS DAILYPRN PRN PRN Reason: Constipation Clonidine (Xbzehjav-Car-3 Patch) 0.1 mg TD Q7DAYS [facility] Last Admin: 05/07/17 12:59 Dose: 0.1 mg Famotidine (Pepcid) 20 mg SLOW IVP Q12HR [facility] Last Admin: 05/08/17 20:40 Dose: 20 mg Guaifenesin (Robitussin Sf) 200 mg PER TUBE Q4H PRN PRN Reason: Cough Hydralazine HCl (Apresoline) 10 mg SLOW IVP Q3H PRN PRN Reason: DIRECTED Last Admin: 05/09/17 08:19 Dose: 10 mg Dextrose/Sodium Chloride (D5 1/2 Ns) 1,000 mls @ 70 mls/hr IV .[id number] [facility] Last Admin: 05/08/17 19:32 Dose: 1,000 mls Labetalol HCl (Normodyne) 10 mg SLOW IVP Q2H PRN PRN Reason: SBP > 150 or DBP > 90 Last Admin: 05/08/17 22:05 Dose: 10 mg Mineral Oil/White Petrolatum (Eucerin Cream) 0 gm TOP BIDPRN PRN PRN Reason: Dry Skin Morphine Sulfate (Morphine Sulfate) 2 mg SLOW IVP Q4H PRN PRN Reason: Pain Ondansetron HCl (Zofran) 4 mg IVP BIDPRN PRN PRN Reason: Nausea/Vomiting Phenol (Chloraseptic [place] 180 Ml Bot) 0 ml PO PRN PRN PRN Reason: Sore Throat Sodium Biphosphate/Sodium Phosphate (Fleet Enema) 133 ml MS PRN PRN PRN Reason: Constipation Sodium Chloride (Flush - Normal Saline) 10 ml IVF PRN PRN PRN Reason: Saline Flush Last Admin: 05/08/17 10:40 Dose: 10 ml Sodium Chloride ([place] Nasal [place] 0.65%) 0 ml EA NARE QIDPRN PRN PRN Reason: Nasal Congestion
--- NOTE | 2017-05-09 11:55 | OP ---
DATE OF PROCEDURE: 05/09/2017 PROCEDURE: Esophagogastroduodenoscopy with percutaneous endoscopic gastrostomy tube placement. PREOPERATIVE DIAGNOSES: Dysphagia and stroke. PROCEDURE IN DETAIL: Informed consent was obtained from the patient's family. He was sedated with t otal intravenous anesthesia. The bite block was placed and the endoscope was advanced easily to the second portion of the duodenum and retroflexion was performed in the stomach. The esophagus was norm al. The GE junction was normal. The stomach was normal including retroflexed views. The pylorus an d first and second portions of the duodenum were normal. The appropriate site was transilluminated i n the left upper quadrant. This was palpated and there was good 1:1 visualization. The skin was erica rilized with chlorhexidine. The skin was anesthetized with 5 mL of 1% lidocaine. A small skin incis ion was performed with a scalpel and the catheter was placed easily into the stomach on the first att empt. The wire was placed through the catheter and grasped with a snare and pulled out the patient's mouth. The tube was attached and the catheter and placed by the pull-through technique. IMPRESSION: 1. Normal esophagogastroduodenoscopy. 2. Successful placement of 20-[place] percutaneous endoscopic gastrostomy tube. RECOMMENDATIONS: Start tube feeds in 12 hours.
--- NOTE | 2017-05-09 12:04 | PRG ---
DATE OF SERVICE: 05/09/2017 SUBJECTIVE: A 77-year-old gentleman opens his eyes. He was having a PEG done. Denies any difficulty breathing. His is at the bedside. OBJECTIVE: VITAL SIGNS: Blood pressure 130/80, respiratory rate of 18. CHEST: No wheezing. CARDIAC: Normal S1, S2. ABDOMEN: Soft. No masses. IMPRESSION AND PLAN: 1.cerebral_ hemorrhage. 2. Dysphagia. 3. Percutaneous endoscopic gastrostomy. 4. Supportive care, eventually placement. [facility]
[2017-05-09] MEDS: Dextrose 5 %-0.45 % NaCl 1,000 ML IV SCH (12:40)
[2017-05-09] MEDS: Famotidine/PF 20 mg/2ml Vial SLOW IVP SCH ×2 (12:43→20:34)
[2017-05-09] MEDS ORDERED: PROPOFOL 200 MG/20 ML VIAL ONE (13:57)
[2017-05-09] MEDS ORDERED: Lidocaine 1% PF 5 ML VIAL ONE (13:57)
[2017-05-09 14:17] VITALS: BMI 25.2
[2017-05-09] MEDS: Atorvastatin Calcium 10 MG TAB PER TUBE SCH (23:51)
[2017-05-10] MEDS: Dextrose 5 %-0.45 % NaCl 1,000 ML IV SCH (03:27)
[2017-05-10] MEDS: Amlodipine 10 MG TAB PER TUBE SCH (10:12)
[2017-05-10] MEDS: Famotidine/PF 20 mg/2ml Vial SLOW IVP SCH (10:14)
--- NOTE | 2017-05-10 12:22 | PDOC.PN ---
- Subjective Encounter Start Date: 05/10/17 Encounter Start Time: 07:30 pt is doing well, tolerating tube feeding, bedside - Objective Resuscitation Status: Resuscitation Status FULL:Full Resuscitation MAR Reviewed: Yes Vital Signs & Weight: Vital Signs (12 hours) Temp Pulse Resp BP BP Pulse Ox 05/10/17 11:38 97.9 F 65 18 122/70 97 05/10/17 10:12 76 127/66 05/10/17 08:01 97.5 F L 76 20 127/66 97 05/10/17 08:00 97.9 F 65 18 97 05/10/17 04:00 98 F 72 16 152/73 H 97 05/10/17 01:32 141/73 H Weight Admit Weight 145 lb 11.609 oz Weight 151 lb Most Recent Monitor Data Heart Rate from ECG 68 NIBP 144/85 NIBP BP-Mean 92 Respiration from ECG 18 SpO2 100 I&O: 05/09/17 05/10/17 05/11/17 06:59 06:59 06:59 Intake Total 1026 426 Output Total 750 1625 Balance 276 -1199 Result Diagrams: 05/07/17 04:35 05/07/17 04:34 EKG Reviewed by me: Yes Phys Exam - Physical Examination Constitutional: NAD HEENT: PERRLA, moist MMs, sclera anicteric Neck: no JVD, supple Respiratory: no wheezing, no rales, no rhonchi Cardiovascular: RRR, no significant murmur, no rub Gastrointestinal: soft, non-tender, no distention, positive bowel sounds PEG+ Musculoskeletal: no edema, pulses present right side weakness Lymphatic: no nodes Psychiatric: normal affect Skin: no rash, normal turgor Dx/Plan (1) ICH (intracerebral hemorrhage) Code(s): I61.9 - NONTRAUMATIC INTRACEREBRAL HEMORRHAGE, UNSPECIFIED Status: Acute Qualifiers: Intracerebral hemorrhage etiology: nontraumatic Cerebral hemorrhage location: cerebral hemisphere, subcortical portion Laterality: left Qualified Code(s): I61.0 - Nontraumatic intracerebral hemorrhage in hemisphere, subcortical (2) Hypertension Code(s): I10 - ESSENTIAL (PRIMARY) HYPERTENSION Status: Chronic (3) Oropharyngeal dysphagia Code(s): R13.12 - DYSPHAGIA, OROPHARYNGEAL PHASE Status: Acute Comment: s/p PEG placement (4) H/O: CVA (cerebrovascular accident) Code(s): Z86.73 - PRSNL HX OF TIA (TIA), AND CEREB INFRC W/O RESID DEFICITS Status: Chronic (5) Physical deconditioning Code(s): R53.81 - OTHER MALAISE Status: Chronic (6) Dyslipidemia Code(s): E78.5 - HYPERLIPIDEMIA, UNSPECIFIED Status: Chronic - Plan cont current plan of care, plan discussed w/ family, PT/OT, social media community manager * DC IVF * continue tube feeding as tolerated * increase amlodipine 10 mg * medication reviewed as below * symptomatic treatment * stroke team. Review of Systems - Review of Systems Other: not reliable due to his level of cognitive status - Medications/Allergies Allergies/Adverse Reactions: Allergies Allergy/AdvReac Type Severity Reaction Status Date / Time Penicillins Allergy Verified 05/05/17 21:59 Medications: Current Medications Acetaminophen (Tylenol) 650 mg [place] Q4H PRN PRN Reason: Headache/Fever or Pain Acetaminophen (Tylenol) 650 mg PER TUBE Q4H PRN PRN Reason: Headache/Fever or Mild Pain Al Hydroxide/Mg Hydroxide (Maalox) 15 ml PER TUBE Q4H PRN PRN Reason: Heartburn or Indigestion Amlodipine Besylate (Norvasc) 10 mg PER TUBE DAILY [facility] Last Admin: 05/10/17 10:12 Dose: 10 mg Artificial Tears (Tears Naturale) 0 drop EA EYE PRN PRN PRN Reason: Dry Eyes Atorvastatin Calcium (Lipitor) 10 mg PER TUBE HS [facility] Last Admin: 05/09/17 23:51 Dose: 10 mg Bisacodyl (Dulcolax) 10 mg [place] DAILYPRN PRN PRN Reason: Constipation Clonidine (Enlxccti-Ohg-1 Patch) 0.1 mg TD Q7DAYS [facility] Last Admin: 05/07/17 12:59 Dose: 0.1 mg Famotidine (Pepcid) 20 mg SLOW IVP Q12HR [facility] Last Admin: 05/10/17 10:14 Dose: 20 mg Guaifenesin (Robitussin Sf) 200 mg PER TUBE Q4H PRN PRN Reason: Cough Hydralazine HCl (Apresoline) 10 mg SLOW IVP Q3H PRN PRN Reason: DIRECTED Last Admin: 05/09/17 19:02 Dose: 10 mg Dextrose/Sodium Chloride (D5 1/2 Ns) 1,000 mls @ 70 mls/hr IV .[id number] [facility] Last Admin: 05/10/17 03:27 Dose: 1,000 mls Labetalol HCl (Normodyne) 10 mg SLOW IVP Q2H PRN PRN Reason: SBP > 150 or DBP > 90 Last Admin: 05/08/17 22:05 Dose: 10 mg Mineral Oil/White Petrolatum (Eucerin Cream) 0 gm TOP BIDPRN PRN PRN Reason: Dry Skin Morphine Sulfate (Morphine Sulfate) 2 mg SLOW IVP Q4H PRN PRN Reason: Pain Ondansetron HCl (Zofran) 4 mg IVP BIDPRN PRN PRN Reason: Nausea/Vomiting Phenol (Chloraseptic [place] 180 Ml Bot) 0 ml PO PRN PRN PRN Reason: Sore Throat Sodium Biphosphate/Sodium Phosphate (Fleet Enema) 133 ml [place] PRN PRN PRN Reason: Constipation Sodium Chloride (Flush - Normal Saline) 10 ml IVF PRN PRN PRN Reason: Saline Flush Last Admin: 05/10/17 10:14 Dose: 10 ml Sodium Chloride ([place] Nasal [place] 0.65%) 0 ml EA NARE QIDPRN PRN PRN Reason: Nasal Congestion
--- NOTE | 2017-05-10 16:09 | PRG ---
DATE OF SERVICE: 05/10/2017 SUBJECTIVE: Mr. Ha has been tolerating his tube feeds well. He has no abdominal pain. He is more alert today and responsive. OBJECTIVE: LUNGS: Clear to auscultation bilaterally. HEART: Regular rate and rhythm. ABDOMEN: Soft and his bowel sounds are active. No abdominal tenderness. The external bumper was lo osened slightly. The skin around the PEG site appears healthy. IMPRESSION: Dysphagia, status post percutaneous endoscopic gastrostomy tube placement. RECOMMENDATIONS: 1. Continue tube feeds. 2. I will sign off. Please call if GI can be of assistance.
--- NOTE | 2017-05-10 17:26 | EKG ---
Test Reason : Blood Pressure : / mmHG Vent. Rate : 058 BPM Atrial Rate : 058 BPM P-R Int : 156 ms QRS Dur : 096 ms QT Int : 434 ms P-R-T Axes : 012 048 134 degrees QTc Int : 426 ms Sinus bradycardia Anterior infarct , age undetermined Nonspecific ST changes Abnormal ECG Confirmed by DEEPIKA SEPULVEDA, JUANCHO Santana ([id number]), editor at large BENITO VIDAL ([id number]) on 05/10/2017 5:25:51 PM Referred By: Confirmed By:JUANCHO POE MD
--- NOTE | 2017-05-10 17:36 | PRG ---
DATE OF SERVICE: 05/10/2017 SERVICE: Pulmonary Medicine. INTERVAL HISTORY: The patient is doing great from a respiratory standpoint. He is breathing comfort ably. He is following some simple commands with his left upper and lower extremities. Able to stand on two separate occasions with physical therapy. He is slow to respond, but otherwise he looks be i n no distress. He is on room air. PHYSICAL EXAMINATION: VITAL SIGNS: Afebrile, pulse 80, blood pressure 156/81, respirations 20, saturation 98% on room air. GENERAL: Patient is awake, alert, no apparent distress. LUNGS: Decent air entry. Rhonchi are present. No prolonged expiratory phase or wheezing is appreci ated. HEART: Normal rate, regular. ABDOMEN: Soft, nontender, nondistended. Bowel sounds positive. MUSCULOSKELETAL: No cyanosis or clubbing. No pitting in the bilateral lower extremities. NEUROLOGIC: Grossly nonfocal. ASSESSMENT: 1. Intraventricular hemorrhage. 2. Dysphasia. 3. Status post percutaneous endoscopic gastrostomy tube placement. DISCUSSION AND PLAN: The patient is doing well from a respiratory standpoint. As such, Pulmonary wi ll continue to follow intermittently. From a purely respiratory perspective, he remains stable for t ransition out to the hospital. If he gets into trouble, please give me a phone call sooner.
[2017-05-10] MEDS: Famotidine 20 MG TAB PER TUBE SCH (22:26)
[2017-05-10] MEDS: Atorvastatin Calcium 10 MG TAB PER TUBE SCH (22:26)
[2017-05-11] MEDS ORDERED: Carvedilol 6.25 MG TAB PER TUBE SCH (08:00)
[2017-05-11] MEDS ORDERED: Lisinopril 5 MG TAB PER TUBE SCH (09:00)
[2017-05-11] MEDS: Famotidine 20 MG TAB PER TUBE SCH (10:05)
[2017-05-11] MEDS: Amlodipine 10 MG TAB PER TUBE SCH (10:05)
--- NOTE | 2017-05-11 11:11 | DIS ---
PRIMARY CARE PHYSICIAN: Dr. Toby Fierro. DATE OF ADMISSION: 05/05/2017 DATE OF DISCHARGE: 05/11/2017 DISCHARGE DISPOSITION: Inpatient rehabilitation. PRIMARY DISCHARGE DIAGNOSES: 1. Left frontal lobe intracerebral hemorrhage. 2. Oropharyngeal dysphagia, status post PEG tube placement. SECONDARY DISCHARGE DIAGNOSES: Physical deconditioning, hypertension, history of CVA, dyslipidemia, and hypertension. PRIMARY PROCEDURE/OPERATION: PEG tube placement. RADIOLOGICAL INVESTIGATION: CT brain initially showed left frontal lobe intraparenchymal hemorrhage. Echocardiography showed EF 40% to 45% and diastolic dysfunction. A repeat CT brain 2 times was sta ble. SIGNIFICANT LABORATORY DATA: WBC 7.2, hemoglobin 14.2, platelets 207. INR 1.0, sodium 137, potassiu m 3.9, BUN 11, creatinine 0.75, calcium 8.9, LDL 117. Homocysteine 7.67. LFTs normal. Cardiac enzy mes negative. Urinalysis normal. DISCHARGE MEDICATIONS: Amlodipine 10 mg per tube daily, Lipitor 10 mg per tube daily, Coreg 12.5 mg per tube b.i.d., Pepcid 20 mg per tube b.i.d., and lisinopril 5 mg per tube daily. CONTRAINDICATIONS: None. The patient is not on aspirin or any antiplatelet or anticoagulant therapy because of intracranial hemorrhage. CODE STATUS: FULL CODE. INPATIENT CONSULTANTS: Dr. Sanchez was following because the patient was admitted to CCU. Dr. Carvajal was consulted for PEG tube placement. Dr. Vargas initially primary and subsequently they sign off and sound team was primary by the time of discharge. DISCHARGE PLAN: Post hospital, the patient will follow up with Dr. Sri Luis after rehabilitatio n. HOSPITAL COURSE: A 77-year-old male who initially came to the emergency room with right-sided weakne ss, facial asymmetry, and altered mental status. In the emergency room, CT brain showed intraparench ymal left frontal lobe hemorrhage. CT cervical spine was negative. Patient was admitted in the CCU under neurosurgeon, Dr. Vargas was initially primary. Sound team was consulted for medical comanag ement. Patient was treated with Cardene drip in the CCU because the patient was in the CCU and that is why pulmonary group saw this patient. Patient was having difficulty swallowing because of intracr anial hemorrhage and patient was deemed not a safe candidate for any kind of oral intake. Initially we put a Dobhoff tube and subsequently patient removed Dobhoff tube and we discussed with the patient 's about necessity PEG tube placement. Patient was agreed and Dr. Carvajal was consulted and he di d a PEG tube placement. After that, we started tube feeding and he was tolerating well. Before that we moved him to stroke floor from CCU. He had 2 CT brain, which was stable. The patient was also hydrated with IV fluid while in hospital until he got nutritional support. Patient is doing very well. He is accepted for inpatient rehabilitation and now we have access for o ral intake and that is why we changed antihypertensive medication to Amlodipine, Coreg, and lisinopri l. Catapres patch was removed, which was started earlier. LDL is high and that is why we are prescr ibed Lipitor as well. Today, I saw this patient at bedside. I spoke with the patient's and updated about the plan. PHYSICAL EXAMINATION: VITAL SIGNS: Currently, temperature 98.0, pulse 72, respiratory rate 16, saturation 96%, blood press ure 167/85. Weight 151 pounds. GENERAL: The patient is arousable, smiling. HEAD: Normocephalic, atraumatic. EYES: Pupils round, reactive to light. Extraocular muscles intact. ENT: Oropharynx within normal limits. Facial asymmetry noted. NECK: Supple, no JVD, no thyromegaly, no carotid bruits. LUNGS: Clear to auscultation without any rhonchi or rales. CARDIAC: S1 and S2 regular without any murmur. ABDOMEN: Soft and benign without any tenderness active in place. EXTREMITIES: No edema. NEUROLOGIC: The patient does have right-sided weakness and aphasia. Paper work for discharge done. Discharge medication reconciliation done. Total time spent on discha rge day more than 30 minutes.
[2017-05-11 11:30] VITALS: BP 98/57
[2017-05-11 11:32] VITALS: TEMP 98.8
== END 2017-05-11 15:47 | DRG 64 ==
LOC: ERS 20:25 → CCU 21:20 → 2SE 05-07 13:54
PROVIDERS: ADMIT Neurological Surgery; ATTEND Neurological Surgery
PROC: 0DH63UZ Insertion of Feeding Device into Stomach, Percutaneous Approach (ICD-10-PCS; principal; 2017-05-09)
DX: I61.1 Nontraumatic intracerebral hemorrhage in hemisphere, cortical (principal); G93.49 Other encephalopathy; G81.91 Hemiplegia, unspecified affecting right dominant side; R13.12 Dysphagia, oropharyngeal phase; I10 Essential (primary) hypertension; E78.5 Hyperlipidemia, unspecified; Z86.73 Personal history of transient ischemic attack (TIA), and cerebral infarction without residual deficits; Z88.0 Allergy status to penicillin
CPT/HCPCS: 36415; 36416; 51702; 70450; 72125; 74018; 80048; 80053; 80061; 81003; 82553; 83090; 84484; 85025; 85610; 85730; 93005; 93306; 99292; G0390; G8978-GP-CN; G8979-GP-CM; G8987-GO-CM; G8988-GO-CK; G8996-GN-CN; G8997-GN-CJ; G8997-GN-CM; J0360; J1956; J2001; J2704; J3490; J7050; S0028

== ENCOUNTER 2017-05-20 14:30 | Emergency (ER) | payer MEDICARE, OTHER ==
[2017-05-20 15:07] LABS: Bilirubin Negative (Negative); Blood, Urine Negative (Negative); Clarity CLOUDY (Clear); Glucose, Urine (Dipstick) Negative (Negative); Leukocyte Moderate (Negative); Nitrite Negative (Negative); Protein, Urine (Dipstick) Negative (Neg-Trace); Specific Gravity, Urine 1.021 (1.002-1.036); pH, Urine 5.5 (5.0-9.0)
[2017-05-20 15:09] LABS: Bacteria/HPF None Seen HPF (None Seen); Hyaline Casts/LPF 0-3 HYALINE CAST LPF (0-3 Hyaline); Squamous Epithelial 0-3 HPF (0-3)
--- NOTE | 2017-05-20 15:37 | CT ---
NONCONTRAST HEAD CT: History: Trauma. Fall. Post-traumatic pain. Comparison: 05-08-17 Technique: Noncontrast head CT is performed from skull base to skull vertex. FINDINGS: Re-demonstration of the large hemorrhage centered in the left lentiform nucleus. There is associated peripheral edema. There is mass effect, left lateral ventricle. There is no midline shift. Basilar ci sterns are patent. There is malacic change involving the right frontal and temporal lobes due to germain te insult. No hydrocephalus. Calvarium is intact. Skin manuel in the right frontal scalp. Adequate aeration of sinuses and mastoi d air cells. IMPRESSION: Re-demonstration of intracranial hemorrhage. No intracranial post-traumatic sequellae. Results of ashley dy discussed with Dr. Gonzalez 05-20-17 at 3:25 p.m. POS: [facility]
--- NOTE | 2017-05-20 15:44 | CT ---
CT CERVICAL SPINE WITH CORONAL AND SAGITTAL REFORMATIONS: 05/20/17 HISTORY: Fell out of wheelchair and hit head, headache and neck pain. FINDINGS/IMPRESSION: There are degenerative changes most prominent at C5-6 level. No acute fracture or subluxation is iden tified. POS: [facility]
== END 2017-05-20 16:40 | disposition home or self-care (01) ==
LOC: ERS 14:30
DX: S01.01XA Laceration without foreign body of scalp, initial encounter (principal); Z86.73 Personal history of transient ischemic attack (TIA), and cerebral infarction without residual deficits; W05.0XXA Fall from non-moving wheelchair, initial encounter
CPT/HCPCS: 12001; 70450; 72125; 81003; 81015; 87077; 87086; 87186

== ENCOUNTER 2017-05-22 11:07 | Emergency (ER) | payer MEDICARE, OTHER ==
--- NOTE | 2017-05-22 11:54 | CT ---
NONCONTRAST HEAD CT: Date: 05/22/17 HISTORY: Fall. Pain. Intracranial hemorrhage. COMPARISON: 05/20/17, 05/08/17. TECHNIQUE: A noncontrast head CT is performed from the skull base to the skull vertex. FINDINGS: Persistent hematoma centered in the left deep tena matter structures. There is continuous peripheral edema. The hematoma currently measures 3.6 x 2.3 cm. Persistent mild mass effect upon the left latera l ventricle. Stable malacic changes in the right frontal lobe. Calvarium is intact. Adequate aeration of the sinuses and mastoid air cells. Skin manuel project over the right frontal r egion. IMPRESSION: Redemonstration of intracranial hemorrhage. Associated edema. When compared to the most recent prior exam, no significant change in size of the intracranial hemorrhage. Continue surveillance. POS: OFF
[2017-05-22 12:33] LABS: #Eosinphils 0.1 thou/uL (0.0-0.7); #Lymphocytes 1.2 thou/uL (1.20-3.40); #Monocytes 0.5 thou/uL (0.11-0.59); #Neutrophils 6.2 thou/uL (1.40-6.50); %Basophils 0.3 % (0.0-1.0); %Eosinophils 0.8 % (0.0-10.0); %Lymphocytes 15.3 % (21.0-51.0); %Monocytes 6.3 % (0.0-10.0); %Neutrophils 77.3 % (42.0-75.0); Hemoglobin 14.6 g/dL (14.0-18.0); Mean Corpuscular HGB CONC 32.1 g/dL (32.0-36.0); Mean Corpuscular Hemoglobin 29.9 pg (27.0-31.0); Mean Corpuscular Volume 93.2 fl (80.0-94.0); Mean Platelet Volume 7.3 fL (7.4-10.4); Platelet Count 296 thou/uL (130-400); RBC Distribution Width 11.7 % (11.5-14.5); Red Blood Cell (RBC) Count 4.89 mill/uL (4.70-6.10)
[2017-05-22 12:56] LABS: ALT (SGPT) 20 U/L (8-55); AST (SGOT) 22 U/L (5-34); Albumin 3.8 g/dL (3.4-4.8); Alkaline Phosphatase 81 U/L (40-150); Anion Gap 13 mmol/L (10-20); BUN (Urea Nitrogen) 20 mg/dL (8.4-25.7); Bilirubin, Total 0.7 mg/dL (0.2-1.2); Calc. Creatinine Clearance 0 mL/min (70-130); Calcium 9.3 mg/dL (7.8-10.44); Carbon Dioxide 29 mmol/L (23-31); Chloride 97 mmol/L (98-107); Estimated GFR-MDRD Greater than 90; Globulin 2.8 g/dL (2.4-3.5); Glucose 121 mg/dL (83-110); Potassium 4.7 mmol/L (3.5-5.1); Protein, Total 6.6 g/dL (5.8-8.1); Sodium 134 mmol/L (136-145)
[2017-05-22 12:59] LABS: CKMB 2.2 ng/mL (0-6.6); Troponin I Less than 0.010 ng/mL (< 0.028)
== END 2017-05-22 13:52 | disposition home or self-care (01) ==
LOC: ERS 11:07
DX: R40.0 Somnolence (principal); T44.7X5A Adverse effect of beta-adrenoreceptor antagonists, initial encounter; I69.90 Unspecified sequelae of unspecified cerebrovascular disease; Z79.899 Other long term (current) drug therapy
CPT/HCPCS: 36415; 70450; 82553; 84484; 93005

== ENCOUNTER 2018-12-14 10:22 | Inpatient (IN) | payer MEDICARE, OTHER ==
[2018-12-14] MEDS ORDERED: DOPamine 400 MG/D5W 250 ML 250 ML ONE (10:43)
[2018-12-14 10:53] LABS: #Eosinphils 0.1 thou/uL (0.0-0.7); #Lymphocytes 1.4 thou/uL (1.20-3.40); #Monocytes 0.9 thou/uL (0.11-0.59); #Neutrophils 11.8 thou/uL (1.40-6.50); %Basophils 0.3 % (0.0-1.0); %Eosinophils 0.6 % (0.0-10.0); %Monocytes 6.5 % (0.0-10.0); %Neutrophils 82.6 % (42.0-75.0); Hemoglobin 15.7 g/dL (14.0-18.0); Mean Corpuscular HGB CONC 33.9 g/dL (32.0-36.0); Mean Corpuscular Hemoglobin 30.9 pg (27.0-31.0); Mean Corpuscular Volume 91.1 fL (78.0-98.0); Mean Platelet Volume 7.6 fL (7.4-10.4); Platelet Count 259 thou/uL (130-400); RBC Distribution Width 12.7 % (11.5-14.5); Red Blood Cell (RBC) Count 5.09 mill/uL (4.70-6.10); White Blood Cell (WBC) Count 14.2 thou/uL (4.8-10.8)
--- NOTE | 2018-12-14 10:57 | RAD ---
EXAM: Single view of the chest HISTORY: Vomiting and aspiration COMPARISON: None FINDINGS: Single view of the chest shows a normal sized cardiomediastinal silhouette. There is no leana dence of consolidation, mass, or pleural effusion. Degenerative changes are seen in the spine. IMPRESSION: No evidence of acute cardiopulmonary disease
[2018-12-14 11:22] LABS: ALT (SGPT) 15 U/L (8-55); AST (SGOT) 16 U/L (5-34); Albumin 3.8 g/dL (3.4-4.8); Alkaline Phosphatase 82 U/L (40-150); Anion Gap 12 mmol/L (10-20); BUN (Urea Nitrogen) 23 mg/dL (8.4-25.7); Bilirubin, Total 0.5 mg/dL (0.2-1.2); CK (CPK) 115 U/L (30-200); Calc. Creatinine Clearance 0 mL/min (70-130); Carbon Dioxide 22 mmol/L (23-31); Chloride 103 mmol/L (98-107); Estimated GFR-MDRD 64; Globulin 2.7 g/dL (2.4-3.5); Glucose 201 mg/dL (83-110); Lipase 21 U/L (8-78); Potassium 4.6 mmol/L (3.5-5.1); Protein, Total 6.5 g/dL (5.8-8.1); Sodium 132 mmol/L (136-145)
[2018-12-14] MEDS ORDERED: Sodium Chloride 0.9% 2,500 ML IV SCH (11:30)
[2018-12-14] MEDS ORDERED: Cefepime 2 GM in Sodium Chloride 0.9% 100 ML IVPB SCH (11:45)
[2018-12-14] MEDS ORDERED: DOPamine 400 MG/D5W 250 ML 250 ML IVPB SCH (11:45)
[2018-12-14] MEDS ORDERED: Clindamycin/D5W 900 MG in Premix Bag 1 BAG IVPB SCH (12:00)
[2018-12-14 12:08] LABS: Bilirubin Negative (Negative); Blood, Urine 2+ (Negative); Clarity Clear (Clear); Glucose, Urine (Dipstick) Normal (Negative); Leukocyte Negative Leu/uL (Negative); Nitrite Negative (Negative); Protein, Urine (Dipstick) Negative (Neg-Trace); RBC/HPF 0-3 HPF (0-3); Squamous Epithelial 0-3 HPF (0-3); Urobilinogen Normal mg/dL (Less than 2); WBC/HPF 0-3 HPF (0-3)
[2018-12-14 12:11] LABS: Bacteria/HPF 1+ HPF (None Seen)
[2018-12-14] MEDS ORDERED: Morphine 4 MG/ML VIAL SLOW IVP PRN (14:40)
[2018-12-14] MEDS ORDERED: Lorazepam 2 MG/ML VIAL SLOW IVP PRN (14:41)
--- NOTE | 2018-12-14 14:44 | PDOC.HHP ---
Hospitalist HPI - History of Present Illness Aspiration History of Present Illness: 78 year old gentleman with PMHx of intracranial hemorrhage, aphasia, dysphagia, bed bound state for the past 20 months, HTN, HLD, and failure to thrive was transferred from rehabilitation facility today after he aspirated his tube feedings. Patient hypothermic on admission, WBC count of 14k, and hypotension diagnosed with septic shock in the emergency department. Initially placed on vasoactive medications for blood pressure support and a warming blanket. I find the patient in the ED, he is surrounded by his loved ones including , care professionals, and family friends. states that the patient is a DNR, and they are not interested in aggressive measures. They do not want vasoactive medications, antibiotics, or other life sustaining interventions such as intubation. We will admit to medical/ surgical unit, consult palliative care team, and hospice. Plan of care is symptom management and comfort care at this time. 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 Gastrointestinal: denies: GI bleed Heme/Onc: denies: Sickle cell disease Psych: denies: Psychosis, Schizophrenia Musculoskeletal: reports: Osteoarthritis Rheumatologic: denies: Rheumatoid arthritis Infectious Disease: denies: HIV Renal/: denies: Chronic renal failure - Social History Smoking Status: Never smoker Alcohol: reports: None Drugs: reports: none Living Situation: Halfway Activity level: bed bound - Exam General Appearance: ill appearing Eye: PERRL, anicteric sclera ENT: no oropharyngeal lesions, moist mucosa Neck: supple, symmetric, no lymphadenopathy Heart: no murmur, no gallops, no rubs Heart - other findings: S1 and S2 present Respiratory: no wheezes, no rales, no ronchi, normal chest expansion Gastrointestinal: non-tender, non-distended, no palpable masses, no guarding, no rigidity Extremities: 1+ LE edema Skin: no lesions, no rashes Neurological: no new deficit, hemiplegia, speech deficit Musculoskeletal: diffuse muscle atrophy Psychiatric: not oriented Hospitalist Results - Labs Result Diagrams: 12/14/18 10:38 12/14/18 10:38 Lab results: WBC 14.2 thou/uL (4.8-10.8) H 12/14/18 10:38 Hgb 15.7 g/dL (14.0-18.0) 12/14/18 10:38 Hct 46.3 % (42.0-52.0) 12/14/18 10:38 MCV 91.1 fL (78.0-98.0) 12/14/18 10:38 Plt Count 259 thou/uL (130-400) 12/14/18 10:38 Neutrophils % 82.6 % (42.0-75.0) H 12/14/18 10:38 Sodium 132 mmol/L (136-145) L 12/14/18 10:38 Potassium 4.6 mmol/L (3.5-5.1) 12/14/18 10:38 Chloride 103 mmol/L (98-107) 12/14/18 10:38 Carbon Dioxide 22 mmol/L (23-31) L 12/14/18 10:38 BUN 23 mg/dL (8.4-25.7) 12/14/18 10:38 Creatinine 1.11 mg/dL (0.7-1.3) 12/14/18 10:38 Glucose 201 mg/dL (83-110) H 12/14/18 10:38 Lactic Acid 2.2 mmol/L (0.5-2.2) 12/14/18 10:38 Calcium 9.0 mg/dL (7.8-10.44) 12/14/18 10:38 Total Bilirubin 0.5 mg/dL (0.2-1.2) 12/14/18 10:38 AST 16 U/L (5-34) 12/14/18 10:38 ALT 15 U/L (8-55) 12/14/18 10:38 Alkaline Phosphatase 82 U/L (40-150) 12/14/18 10:38 Creatine Kinase 115 U/L (30-200) 12/14/18 10:38 Troponin I Less than 0.010 ng/mL (< 0.028) 12/14/18 10:38 Serum Total Protein 6.5 g/dL (5.8-8.1) 12/14/18 10:38 Albumin 3.8 g/dL (3.4-4.8) 12/14/18 10:38 Lipase 21 U/L (8-78) 12/14/18 10:38 Urine Ketones Negative mg/dL (Negative) 12/14/18 11:35 Urine Blood 2+ (Negative) A 12/14/18 11:35 Urine Nitrite Negative (Negative) 12/14/18 11:35 Ur Leukocyte Esterase Negative Uma/uL (Negative) 12/14/18 11:35 Urine RBC 0-3 HPF (0-3) 12/14/18 11:35 Urine WBC 0-3 HPF (0-3) 12/14/18 11:35 Ur Squamous Epith Cells 0-3 HPF (0-3) 12/14/18 11:35 Urine Bacteria 1+ HPF (None Seen) 12/14/18 11:35 - Radiology Interpretation Chest x-ray Status: image reviewed by [place] Hospitalist H&P A/P - Problem (1) Septic shock Code(s): A41.9 - SEPSIS, UNSPECIFIED ORGANISM; R65.21 - SEVERE SEPSIS WITH SEPTIC SHOCK Status: Acute (2) Aspiration pneumonia Code(s): J69.0 - PNEUMONITIS DUE TO INHALATION OF FOOD AND VOMIT Status: Acute (3) ICH (intracerebral hemorrhage) Code(s): I61.9 - NONTRAUMATIC INTRACEREBRAL HEMORRHAGE, UNSPECIFIED Status: Acute Qualifiers: Intracerebral hemorrhage etiology: nontraumatic Cerebral hemorrhage location: cerebral hemisphere, subcortical portion Laterality: left Qualified Code(s): I61.0 - Nontraumatic intracerebral hemorrhage in hemisphere, subcortical (4) Oropharyngeal dysphagia Code(s): R13.12 - DYSPHAGIA, OROPHARYNGEAL PHASE Status: Acute (5) Dyslipidemia Code(s): E78.5 - HYPERLIPIDEMIA, UNSPECIFIED Status: Chronic (6) H/O: CVA (cerebrovascular accident) Code(s): Z86.73 - PRSNL HX OF TIA (TIA), AND CEREB INFRC W/O RESID DEFICITS Status: Chronic (7) Hypertension Code(s): I10 - ESSENTIAL (PRIMARY) HYPERTENSION Status: Chronic (8) Physical deconditioning Code(s): R53.81 - OTHER MALAISE Status: Chronic - Plan Plan: Plan: Admit to Med/ surg Palliative care consult, recommendations appreciated DNAR/ DNI in place Hospice consult Comfort care Morphine IV as needed for pain/ agitation, not able to verbalize pain. Will use non verbal indicators to administer Ativan IV as needed for Anxiety/ agitation, not able to verbalize symptoms. Will use non verbal indicators to administer Oxygen NC Warming blanket No labs, ABX, invasive or painful interventions Short term prognosis guarded
--- NOTE | 2018-12-15 15:39 | PDOC.HOSPP ---
- Subjective Subjective: Seen and examined. and loved ones at bedside. Clinically improved, BP has improved, seems more comfortable. Neurologic condition has not improved. Does not open eyes to voice or noxious stimuli. Does not follow commands, no spontaneous movement. Patients at bedside interested in inpatient hospice, he is a chronic resident of would be the easiest transition if it is possible to do inpatient hospice at. continues to not want aggressive measures, no antibiotics, no heroic measures. Will continue DNAR/ DNI and work with CM/ palliative care to facilitate transition to inpatient hospice care. - Objective Vital Signs & Weight: Vital Signs (12 hours) Temp Pulse Resp BP Pulse Ox 12/15/18 08:00 96 12/15/18 07:55 98.3 F 75 18 120/73 96 12/15/18 04:00 98.9 F 74 18 117/71 94 L Weight Weight 185 lb I&O: 12/14/18 12/15/18 12/16/18 06:59 06:59 06:59 Output Total 1050 Balance -1050 Result Diagrams: 12/14/18 10:38 12/14/18 10:38 Hospitalist ROS - Review of Systems ROS unobtainable: due to mental status - Exam General Appearance: ill appearing Eye: PERRL Eye - other findings: EOMI ENT: no oropharyngeal lesions, dry oral mucosa Neck: supple, symmetric Heart: no murmur, no gallops, no rubs Respiratory: no tachypnea, rhonchi, wheezes Gastrointestinal: soft, non-tender, non-distended, no guarding, no rigidity Extremities: 1+ LE edema Skin: no lesions, no rashes Neurological: hemiplegia (No purpuseful neurolgic movement. Follows no commands. ) Neurological - other findings: obtunded. Does not open eyes to voice or noxious stimuli. Musculoskeletal: diffuse muscle atrophy Psychiatric: not oriented, somnolent Hosp A/P (1) Septic shock Code(s): A41.9 - SEPSIS, UNSPECIFIED ORGANISM; R65.21 - SEVERE SEPSIS WITH SEPTIC SHOCK Status: Acute (2) Aspiration pneumonia Code(s): J69.0 - PNEUMONITIS DUE TO INHALATION OF FOOD AND VOMIT Status: Acute (3) ICH (intracerebral hemorrhage) Code(s): I61.9 - NONTRAUMATIC INTRACEREBRAL HEMORRHAGE, UNSPECIFIED Status: Acute Qualifiers: Intracerebral hemorrhage etiology: nontraumatic Cerebral hemorrhage location: cerebral hemisphere, subcortical portion Laterality: left Qualified Code(s): I61.0 - Nontraumatic intracerebral hemorrhage in hemisphere, subcortical (4) Oropharyngeal dysphagia Code(s): R13.12 - DYSPHAGIA, OROPHARYNGEAL PHASE Status: Acute (5) Dyslipidemia Code(s): E78.5 - HYPERLIPIDEMIA, UNSPECIFIED Status: Chronic (6) H/O: CVA (cerebrovascular accident) Code(s): Z86.73 - PRSNL HX OF TIA (TIA), AND CEREB INFRC W/O RESID DEFICITS Status: Chronic (7) Hypertension Code(s): I10 - ESSENTIAL (PRIMARY) HYPERTENSION Status: Chronic (8) Physical deconditioning Code(s): R53.81 - OTHER MALAISE Status: Chronic - Plan Plan: Med/ Surg D/c planning to inpatient hospice Palliative care consult CM consult Morphine as needed for pain Ativan as needed for anxiety Zofran PRN N/v Comfort care only DNAR in place, we will honor patients and family wishes No antibiotics per patients and family wishes Short term prognosis is poor
--- NOTE | 2018-12-16 15:45 | PDOC.HOSPP ---
- Subjective Subjective: Seen and examined. Has clinically improved. Eyes open tracking around the room. Mouthed words to his , including "I love you". Patient's , son, and loved ones at bedside - they are interested in palliative care/hospice. Case management consulted for D/c planning. - Objective Vital Signs & Weight: Vital Signs (12 hours) Temp Pulse Resp BP Pulse Ox 12/16/18 08:00 92 L 12/16/18 07:15 98.7 F 81 20 115/74 92 L Weight Weight 185 lb I&O: 12/15/18 12/16/18 12/17/18 06:59 06:59 06:59 Output Total 1050 2450 Balance -1050 -2450 Result Diagrams: 12/14/18 10:38 12/14/18 10:38 Hospitalist ROS - Review of Systems ROS unobtainable: due to mental status - Exam General Appearance: ill appearing ENT: dry oral mucosa Neck: supple, symmetric, no lymphadenopathy Heart: no murmur, no gallops Respiratory: no rales, no ronchi, normal chest expansion, rhonchi Gastrointestinal: soft, non-tender, non-distended, no guarding, no rigidity Extremities: no edema Skin: no lesions, no rashes Neurological: no new deficit, speech deficit (Makes no words at baseline. Eyes open, tracking around the room today.) Neurological - other findings: Quadraplegic. Mouth open. Follows no commands for me. Musculoskeletal: diffuse muscle atrophy Psychiatric: not oriented Hosp A/P (1) Septic shock Code(s): A41.9 - SEPSIS, UNSPECIFIED ORGANISM; R65.21 - SEVERE SEPSIS WITH SEPTIC SHOCK Status: Acute (2) Aspiration pneumonia Code(s): J69.0 - PNEUMONITIS DUE TO INHALATION OF FOOD AND VOMIT Status: Acute (3) ICH (intracerebral hemorrhage) Code(s): I61.9 - NONTRAUMATIC INTRACEREBRAL HEMORRHAGE, UNSPECIFIED Status: Acute Qualifiers: Intracerebral hemorrhage etiology: nontraumatic Cerebral hemorrhage location: cerebral hemisphere, subcortical portion Laterality: left Qualified Code(s): I61.0 - Nontraumatic intracerebral hemorrhage in hemisphere, subcortical (4) Oropharyngeal dysphagia Code(s): R13.12 - DYSPHAGIA, OROPHARYNGEAL PHASE Status: Acute (5) Dyslipidemia Code(s): E78.5 - HYPERLIPIDEMIA, UNSPECIFIED Status: Chronic (6) H/O: CVA (cerebrovascular accident) Code(s): Z86.73 - PRSNL HX OF TIA (TIA), AND CEREB INFRC W/O RESID DEFICITS Status: Chronic (7) Hypertension Code(s): I10 - ESSENTIAL (PRIMARY) HYPERTENSION Status: Chronic (8) Physical deconditioning Code(s): R53.81 - OTHER MALAISE Status: Chronic - Plan Plan: Med/ Surg D/c planning to inpatient hospice/ palliative at [facility] where he is a chronic resident Palliative care consult CM consult Morphine as needed for pain Ativan as needed for anxiety Zofran PRN N/v Comfort care only DNAR in place, we will honor patients and family wishes No antibiotics per patients and family wishes Short term prognosis is poor
[2018-12-16 16:32] VITALS: BP 149/91; TEMP 97.5
--- NOTE | 2018-12-17 14:21 | DIS ---
DATE OF ADMISSION: 12/14/2018 DATE OF DISCHARGE: 12/16/2018 REASON FOR HOSPITALIZATION: Aspiration. SIGNIFICANT FINDINGS: The patient found to be septic with aspiration pneumonia. PROCEDURES PERFORMED/TREATMENTS RENDERED: The patient was given large volume IV fluid resuscitation, which stabilized his blood pressure. CONDITION ON DISCHARGE: Guarded. SPECIFIC INSTRUCTIONS FOR THE PATIENT/FAMILY: 1. The patient is recommended transition to [facility], where he is a chronic resident for the past two years roughly. He will start on palliative care and be transitioned to hospice care at [facility]. 2. The patient is recommended to take medications as directed by admitting physician. At this time, the patient's family does not wish to have any antibiotics, enteral nutrition, IV fluids, or any other medications aside from comfort medications only. 3. The patient is recommended to have morphine and Ativan intravenously as needed for pain and anxiety. 4. The patient is recommended to follow up with hospice physician for all future needs. DISCHARGE MEDICATIONS: Please see full list for details with the following changes. 1. Holding home medications via PEG tube with concerns for aspiration. 2. Intravenous morphine 4 mg IV push q.4 hours p.r.n. pain. 3. Ativan 1 mg IV push q.4 hours p.r.n. anxiety. HOSPITAL COURSE: Mr. Ha is an unfortunate 78-year-old gentleman, who suffered intracranial hemorrhage and has chronic aphasia, dysphagia, and bed-bound state for the last 21 months, in addition to hypertension and hyperlipidemia. The patient has been a chronic resident at [facility], where he has been at his baseline level of functioning status until he had an episode of aspiration on his tube feedings. The patient initially found to have WBC count of 14,000, hypotensive and hypothermic with septic shock. In the emergency department, the patient was bolused large volume of IV fluids with stabilization of his blood pressure. A long discussion was had with the patient's family including his , son, and family members at bedside. The patient's advanced directive and living will dictates that he is a do not resuscitate and he does not want aggressive measures. Discussing the patient's options with the family and especially the , who is the power of disability attorney, they have decided for less aggressive measures. The patient was not started on IV antibiotics. No further life-sustaining measures were requested and decision for no intubation was continued per the patient's prior request. We consulted the Palliative Care team and top case assembler to help transition the patient to Palliative Care/hospice treatment. With working with the patient's family, the top case assembler, and palliative care team, decision was made to transition to Palliative Care at [facility], where he is a chronic resident and as symptoms worsen, he will be transitioned to inpatient hospice at [facility]. The patient with palliative care goals at this time, morphine and Ativan to be given as needed intravenously. The patient recommended safe for discharge to palliative/hospice care at this time in a guarded condition. Long discussions were had with the patient's family and they are happy with plan of care. Greater than 45 minutes spent coordinating care and discharge process for this patient. Job ID: [id number]
--- NOTE | 2018-12-19 15:20 | EKG ---
Test Reason : SEPSIS Blood Pressure : / mmHG Vent. Rate : 047 BPM Atrial Rate : 047 BPM P-R Int : 186 ms QRS Dur : 098 ms QT Int : 550 ms P-R-T Axes : 062 017 083 degrees QTc Int : 486 ms Sinus bradycardia Inferior infarct , age undetermined Cannot rule out Anterior infarct , age undetermined Abnormal ECG Confirmed by ANASTACIA SEPULVEDA, JAYLYN ([id number]), order editor BENITO VIDAL ([id number]) on 12/19/2018 3:19:56 PM Referred By: Confirmed By:JAYLYN GALAVIZ MD
== END 2018-12-16 17:22 | DRG 871 ==
LOC: ERS 10:22 → ERHOLD 13:31 → T4-A 16:44
PROVIDERS: ADMIT Internal Medicine; ATTEND Internal Medicine
DX: A41.9 Sepsis, unspecified organism (principal); R65.21 Severe sepsis with septic shock; J69.0 Pneumonitis due to inhalation of food and vomit; I69.951 Hemiplegia and hemiparesis following unspecified cerebrovascular disease affecting right dominant side; I10 Essential (primary) hypertension; E78.5 Hyperlipidemia, unspecified; Z66 Do not resuscitate; R53.81 Other malaise; Z51.5 Encounter for palliative care; I69.220 Aphasia following other nontraumatic intracranial hemorrhage; I69.291 Dysphagia following other nontraumatic intracranial hemorrhage; R13.12 Dysphagia, oropharyngeal phase; Z88.0 Allergy status to penicillin
CPT/HCPCS: 36415; 51702; 71045; 80053; 81003; 81015; 82550; 83605; 83690; 83735; 84484; 85025; 86850; 86900; 86901; 87040; 87086; 93005; 94760; 96360; 96365; 96366; 96368; J1265; J3370; J3490; J7050